=== PATIENT | male | born 1950 | race Caucasian/White ===

== ENCOUNTER 2016-09-03 01:01 | Day surgery (SDC) | payer MEDICARE ==
[2016-09-03] VITALS (13 sets, daily range): BP systolic 107–233; BP diastolic 67–103; PULSE 58–67; RESP 16; O2SAT 92–97
[~2016-09-03] VITALS: Ht 167.6 cm; Wt 87.0 kg
[~2016-09-03 01:01] MED LIST: ALBU8.5H2 INHALATION; AMLO5TAB2 PO; ASPI-973 PO; ATEN50TA PO; ATOR80TA77 PO; CHOL200047 PO; CITA20TA11 PO; FLUT15.88 NS; LISI-567 PO; MULT1CAP33 PO; NITR0.4T SL; SYMINH INHALATION; TAMS0.4C98 PO
[2016-09-03 08:54] LABS: BASOPHILS % (AUTO) 0.6 % (0-3); EOSINOPHILS % (AUTO) 5.1 % (0-5); MONOCYTES % (AUTO) 11.4 % (4-12); Mean Corpuscular Hemoglobin 29.6 pg (27.0-35.0); Mean Corpuscular Volume 86.2 fL (81-100); NEUTROPHILS % (AUTO) 65.3 % (40-74); Platelet Count 157 bil/L (150-400)
[2016-09-03] MEDS ORDERED: Heparin 1,000 Units/500 mL NS Premix IV ONE (08:54)
[2016-09-03] MEDS ORDERED: Heparin 10,000 Unit/1,000 mL NS Premix IV ONE (08:55)
[2016-09-03] MEDS ORDERED: ATEN25TA PO (08:58)
[2016-09-03] MEDS ORDERED: fentaNYL-PF 50 mCg/mL 2 mL Inj ONE (09:36)
--- NOTE | 2016-09-03 09:44 | NUR ---
Admitted today for a heart cath for an abnormal stress test. Previous HX of CAD/stents in 2001. HTN main issue this AM. BP high on admit - B/P decreased during admission process, and had improved more pre procedural Ativan 1mg IVP. Pt is here with his , "Nataly". Both understand plan of care for today's procedure.
[2016-09-03] MEDS ORDERED: Adenosine Inj 40 ML IV ONE (09:45)
[2016-09-03] MEDS ORDERED: 0.9% Sodium Chloride 100 ML ONE (09:45)
[2016-09-03] MEDS ORDERED: Heparin 1,000 Unit/mL 10 mL Inj ONE (09:53)
[2016-09-03] MEDS ORDERED: Atropine 1 mg/10 mL (Code) Syringe ONE (09:54)
[2016-09-03] MEDS ORDERED: Nitroglycerin 50,000 mcg/250 mL D5W Premix IV ONE (09:56)
--- NOTE | 2016-09-03 11:21 | NUR ---
Returned from cath lab technologist - diagnostic heart cath only today. Stents per Dr Schaffer - are open with no need for intervention. Dr Schaffer spoke to the patient's , "Nataly" - plan for more work up to manage HTN issues. NSR-NSB - no pain - plan for D/C in 3 hours with follow up with Dr Schaffer.
--- NOTE | 2016-09-03 14:01 | NUR ---
Discharged from [facility] following a complete recovery post diagnostic heart cath by Dr Schaffer. Right femoral access site is soft and not tender at time of discharge. Walked around unit and stated his knee cap on his right leg felt numb, but he could walk and support his own weight. If concerns, or numbness continues I advised the patient to notify Dr Schaffer's triage office line, especially if the numbness stays the same and is a concern Patient feels a bit dizzy at discharge, but states, "I am dizzy quite a bit, but the dizziness has improved since I've been up walking". Blood pressure checked when patient stated he was dizzy after walking - 116/91. Not much different than recovery BP - slight diastolic increase, but much improved from admit BP. See [facility] vital sign intervention for Historic BP readings. Pt has a [address] Schaffer's clinic for an application of a holter monitor. F/U is scheduled with Dr Schaffer later in the month.
--- NOTE | 2016-09-03 15:22 | CS94 ---
[address] [address] DIAGNOSTIC CARDIAC CATHETERIZATION PATIENT: MARCELA PRICE : 1950 MR#: [id number] ADMIT: 09/03/2016 JOB ID: [id number] SERVICE DATE: 09/03/2016 PATIENT PROFILE: The patient is a 66-year old male with history of hypertension, hyperlipidemia, and history of tobacco use. He had coronary stent placement to the left anterior descending and circumflex artery in 2001. He underwent exercise treadmill stress test on August 30, 2016. His blood pressure dropped while he was on the treadmill. He had no symptoms and no change in his EKG. PROCEDURE: 1. Retrograde left heart catheterization. 2. Selective coronary angiography. 3. Fractional flow reserve to the left anterior descending. 4. Left ventricular angiogram. 5. Vascular closure device: Perclose. COMPLICATIONS: None. METHOD: Retrograde left heart catheterization was performed from the right groin under 1% lidocaine local anesthesia using a 6-Estonian sheath. Selective coronary angiogram was performed in multiple projections, including cranial and caudal angulations with hand injected contrast via JL4 and 3DRC catheters. Heparin 4,000 units were given. A 6-Estonian JL4 guide was advanced to left coronary ostium. A flow wire was directed to the left anterior descending artery. Adenosine was given infusion IV. FFR was measured. A 6-E[place]ian angulated pigtail catheter was advanced to the left ventricle and left ventricular angiogram was performed in the 30-degree BARTON view by injecting contrast at the rate of 10 cc/second for 3 seconds. This catheter was withdrawn. Right femoral angiogram was performed. Following sheath removal, hemostasis was achieved by using a Perclose device. The patient tolerated procedure well. He was transferred to [facility] in good condition. TOTAL CONTRAST USED: 70 cc. FLUOROSCOPY TIME: 2.2 minutes. RESULTS: 1. Selective coronary angiogram: a. Left main coronary artery has mild to moderate ectasia. b. The left anterior descending artery has moderate ectasia in the proximal portion with diffuse 30% to 40% in-stent restenosis in the mid portion. There is a focal 50% to 60% stenosis distal to the stent in the mid portion. c. The circumflex artery has mild to moderate ectasia with minor 10 % to 20% stenosis. d. The dominant right coronary artery has moderate ectasia with slow flow and 30% stenosis. 2. FFR of the left anterior descending artery is 0.84, which indicates nonhemodynamic significant stenosis. 3. Left ventricular angiogram demonstrates normal left ventricular systolic function (visually estimated ejection fraction 65%). There is no wall motion abnormality. There is no mitral regurgitation. 4. There is no gradient across the aortic valve on catheter withdrawal. 5. Aortic pressure is 160/84 mmHg. Left ventricular pressure is 158/3 mmHg. 6. Left ventricular end-diastolic pressure is 17 mmHg. CONCLUSION: 1. Diffuse moderate ectasia of the coronary artery. 2. Patent left anterior descending artery and circumflex artery stents. 3. A 60% mid left anterior descending artery stenosis distal to the previous stent. 4. LVEF 65%. 5. LVEDP is 17 mmHg. MTDD
== END 2016-09-03 23:59 | disposition home or self-care (01) ==
LOC: SPI 01:01
PROVIDERS: ATTEND Internal Medicine Interventional Cardiology
DX: I25.10 Atherosclerotic heart disease of native coronary artery without angina pectoris (principal); Z95.5 Presence of coronary angioplasty implant and graft; E78.5 Hyperlipidemia, unspecified; I10 Essential (primary) hypertension; Z87.891 Personal history of nicotine dependence; I87.2 Venous insufficiency (chronic) (peripheral); G47.30 Sleep apnea, unspecified
CPT/HCPCS: 36415; 80048; 85025; 93005; 93458; 93571; 99152; 99153; C1760; C1769; C1887; J0153; J1644; J2060; J2250; J3010; J7030; Q9967